=== PATIENT | male | born 1955 | race Caucasian/White ===

== ENCOUNTER → 2016-08-08 | Outpatient (CLI) | payer BC ==
[~2016-08-08] MED LIST: ATOR-54 PO; GLUCTAB7 PO; HYDR-5688 PO; LSN40 PO; MULT-506 PO; OXYC1TAB3 PO; RIVA1TAB4 PO; TPRSR/100 PO; [UNRECOGNIZED DRUG - CODE] PO; [UNRECOGNIZED DRUG - CODE] PO; [UNRECOGNIZED DRUG - CODE] PO
== END | disposition home or self-care (01) ==
LOC: C.LABBFT 13:22
PROVIDERS: ATTEND Internal Medicine
DX: Z12.5 Encounter for screening for malignant neoplasm of prostate (principal)

== ENCOUNTER → 2016-08-08 | Outpatient (CLI) | payer BC ==
--- NOTE | 2016-08-08 15:51 | DIAGNOSTIC IMAGING REPORT ---
LEFT KNEE 2 VIEWS CLINICAL HISTORY: Left knee pain. FINDINGS: AP and crosstable lateral views of the left knee are obtained. No prior studies are available for comparison at the time of dictation. The skeletal structures are well mineralized. No fracture is seen. There is mild tricompartmental degenerative joint space narrowing, greatest in the medial and patellofemoral compartments. There are small patellar enthesophytes and medial marginal osteophytes. A joint effusion is suspected. There is mild prepatellar soft tissue swelling. IMPRESSION: 1. Mild prepatellar soft tissue swelling and joint effusion. No fracture is seen. 2. Mild arthritic change as above. Electronically signed by: Eugenio Green M.D. 08/08/2016 3:50 PM Dictated Date/Time: 08/08/2016 3:48 PM
== END | disposition home or self-care (01) ==
LOC: C.RAD1850 15:35
PROVIDERS: ATTEND Internal Medicine
DX: M25.562 Pain in left knee (principal)

== ENCOUNTER 2016-09-15 10:38 | Emergency (ER) | payer OTHER, BC ==
[~2016-09-15] VITALS: Ht 177.8 cm; Wt 122.4 kg
[~2016-09-15 10:38] MED LIST changes: -OXYC1TAB3 PO
[2016-09-15 10:58] VITALS: TEMP 36.9; Ht 177.8 cm; Wt 122.4 kg
--- NOTE | 2016-09-15 11:55 | DIAGNOSTIC IMAGING REPORT ---
RIGHT ANKLE MIN 3 VIEWS ROUTINE CLINICAL HISTORY: D6 Right pain. Edema. COMPARISON: None. DISCUSSION: The bones and joint spaces appear intact. There is no evidence of fracture, dislocation or bony disease. Mild soft tissue edema. Heel spur. IMPRESSION: Mild soft tissue edema. Heel spur. Electronically signed by: Guillermo Christopher M.D. 09/15/2016 11:54 AM Dictated Date/Time: 09/15/2016 11:52 AM
[2016-09-15] MEDS ORDERED: OXYCODONE HCL IR 5 MG TAB (IMMEDIATE RELEASE) PO STA (12:00)
[2016-09-15] MEDS ORDERED: ONDANSETRON 4MG OD TAB PO STA (12:00)
--- NOTE | 2016-09-15 12:04 | DIAGNOSTIC IMAGING REPORT ---
RIGHT FOOT MIN 3 VIEWS ROUTINE CLINICAL HISTORY: Right foot pain s/p inversion injury Right trauma. Pain. COMPARISON: None. DISCUSSION: The bones and joint spaces appear intact. There is no evidence of fracture, dislocation or bony disease. There is no evidence for soft tissue swelling. IMPRESSION: Heel spur. No acute bony abnormality. Electronically signed by: Guillermo Christopher M.D. 09/15/2016 12:03 PM Dictated Date/Time: 09/15/2016 12:02 PM
[2016-09-15 12:43] LABS: HEMATOCRIT 42.7 % (42-52); MEAN CELL VOLUME 86.8 fL (80-100); MEAN CORPUSCULAR HEMOGLOBIN 31.5 pg (25-34); MEAN CORPUSCULAR HGB CONC 36.3 g/dl (32-36); MEAN PLATELET VOLUME 10.8 fL (7.4-10.4); PLATELET COUNT 221 K/uL (130-400); RED BLOOD COUNT 4.92 M/uL (4.7-6.1); WHITE BLOOD COUNT 9.18 K/uL (4.8-10.8)
[2016-09-15 12:59] LABS: BUN/CREATININE RATIO 15.6 (10-20); CALCIUM 8.6 mg/dl (8.5-10.1); CREATININE 0.87 mg/dl (0.60-1.40)
[2016-09-15] MEDS ORDERED: OXYCODONE IR HOME PACK PO STA (13:27)
[2016-09-15] MEDS ORDERED: OXYC1TAB3 PO (13:29)
--- NOTE | 2016-09-15 13:31 | EMERGENCY ROOM VISIT NOTE ---
History First contact with patient: 11:22 Chief Complaint: ANKLE PAIN Stated Complaint: RIGHT ANKLE PAIN-POSSIBLY A WORK RELATED INJURY History of Present Illness The patient is a 61 year old male who presents to the Emergency Room via private vehicle with complaints of "right ankle pain-possibly work related injury". 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 He notes that he did have pain at the time, but is now increasing and he points to the right lateral malleolus as a location of the pain that he rates as an 8/10. He has taken 1 indomethacin tablet with minimal relief. The patient states this does not feel like gout. He denies any chest pain, shortness of breath, fevers, chills, abdominal pain, radiating pain, or numbness or tingling into the distal extremity. He denies any headache or dizziness. He is employed with [employer]. Review of Systems A complete 10-point Review of Systems was discussed with the patient, with pertinent positives and negatives listed in the History of Present Illness. All remaining Review of Systems questions can be considered negative unless otherwise specified. Past Medical/Surgical History Medical Problems: (1) Afib (2) Mitral valve regurgitation Family History A blood pressure, cancer, kidney disease or stones. Social History Smoking Status: Never Smoker Drug Use: none Marital Status: Housing Status: lives alone Occupation Status: employed Social History: Patient lives with daughter. Current/Historical Medications Scheduled Ascorbic Acid (Vitamin C Drops 60 mg), 120 MG PO DAILY Atorvastatin (Lipitor), 20 MG PO HS Vrqxjycvjgj-Xftcgisysty-Yvh C- (Glucosamine Chondroitin), 1 TAB PO DAILY Lisinopril (Lisinopril), 40 MG PO DAILY Metoprolol Succinate (Metoprolol Succinate ER), 100 MG PO DAILY Multivitamin (Multivitamin), 1 TAB PO QAM Raspberry Ketones (Raspberry Ketones), 100 MG PO DAILY Rivaroxaban (Xarelto), 20 MG PO QAM Scheduled PRN Acetaminophen (Extra Strength Pain Relie), 1,000 MG PO Q6 PRN for Pain Oxycodone Ir (Roxicodone Ir), 1-2 TAB PO Q4H PRN for Pain Allergies Coded Allergies: No Known Allergies (Verified , NONE, 04/07/16) Physical Exam Vital Signs Date Time Temp Pulse Resp B/P Pulse Ox O2 Delivery O2 Flow Rate FiO2 09/15/16 14:13 56 18 145/91 91 09/15/16 13:13 88 20 176/101 95 09/15/16 12:00 186/101 09/15/16 10:58 36.9 89 16 198/110 96 Room Air Physical Exam VITAL SIGNS - Vital signs and nursing notes were reviewed. GENERAL -61-year-old male appearing his stated age who is in no acute distress. Communicates well with provider and answers questions appropriately. SKIN - Without rashes. HEAD - NC/AT. LUNGS - Chest wall symmetric without accessory muscle use, intercostals retractions, or central cyanosis. Normal vesicular breath sounds CTA B/L. No wheezes, rales, or rhonchi appreciated. CARDIAC - RRR with S1/S2. No murmur, rubs, or gallops appreciated. EXTREMITIES - No clubbing or peripheral cyanosis. No pretibial edema present. +3 /5 radial, posterior tibial, and dorsalis pedis pulses palpated throughout. Patient is vascularly intact in the right lower extremity.+5/5 strength noted in UE/LE bilaterally. There is tenderness to palpation overlying the right lateral malleolus. NEUROLOGIC - Cranial nerves II through XII grossly intact. PSYCH - Pt is very pleasant and interacts well with examiner. Medical Decision & Procedures ER Provider Diagnostic Interpretation: RIGHT ANKLE MIN 3 VIEWS ROUTINE CLINICAL HISTORY: D6 Right pain. Edema. COMPARISON: None. DISCUSSION: The bones and joint spaces appear intact. There is no evidence of fracture, dislocation or bony disease. Mild soft tissue edema. Heel spur. IMPRESSION: Mild soft tissue edema. Heel spur. Electronically signed by: Guillermo Christopher M.D. 09/15/2016 11:54 AM Dictated Date/Time: 09/15/2016 11:52 AM RIGHT FOOT MIN 3 VIEWS ROUTINE CLINICAL HISTORY: Right foot pain s/p inversion injury Right trauma. Pain. COMPARISON: None. DISCUSSION: The bones and joint spaces appear intact. There is no evidence of fracture, dislocation or bony disease. There is no evidence for soft tissue swelling. IMPRESSION: Heel spur. No acute bony abnormality. Electronically signed by: Guillermo Christopher M.D. 09/15/2016 12:03 PM Dictated Date/Time: 09/15/2016 12:02 PM Laboratory Results 09/15/16 12:30 09/15/16 12:30 Test 09/15/16 12:30 Red Blood Count 4.92 M/uL (4.7-6.1) Mean Corpuscular Volume 86.8 fL (80-100) Mean Corpuscular Hemoglobin 31.5 pg (25-34) Mean Corpuscular Hemoglobin Concent 36.3 g/dl (32-36) RDW Standard Deviation 41.9 fL (36.4-46.3) RDW Coefficient of Variation 13.2 % (11.5-14.5) Mean Platelet Volume 10.8 fL (7.4-10.4) Anion Gap 8.0 mmol/L (3-11) Est Creatinine Clear Calc Drug Dose 114.0 ml/min Estimated GFR () 106.5 Estimated GFR (Non- 91.9 BUN/Creatinine Ratio 15.6 (10-20) Calcium Level 8.6 mg/dl (8.5-10.1) Medications Administered Medications (Trade) Dose Ordered Sig/Jorge Route Start Time Stop Time Status Last Admin Dose Admin Oxycodone HCl (Roxicodone Immediate Rel Tab) 10 mg NOW STAT PO 09/15/16 12:00 09/15/16 12:01 DC 09/15/16 12:17 10 MG Ondansetron HCl (Zofran Odt) 4 mg NOW STAT PO 09/15/16 12:00 09/15/16 12:01 DC 09/15/16 12:18 4 MG Oxycodone HCl (Roxicodone Immediate Rel 5MG Home Pack) 1 homepack UD STAT PO 09/15/16 13:27 09/15/16 13:28 DC 09/15/16 13:48 1 HOMEPACK Medical Decision Patient was seen and evaluated as above. After obtaining a thorough history and physical examination radiographs were obtained of the right ankle secondary to subjective and objective examination findings. It is important that the patient was also found to be hypertensive at 198/110. He did not appear to be symptomatic with this. He was given ice for the ankle, and OxyIR for his pain. Repeat vital signs were initiated and blood pressure decreased minimally. I discussed the case with my attending, or for was decided to draw basic labs to assess kidney function, and an EKG. Labs revealed no leukocytosis or anemia. PRP was unremarkable. EKG revealed sinus bradycardia, rate of 59 bpm, without ectopy or ischemic change. When compared with EKG of 12/23/2014, no significant change was found, and PVCs were no longer present. The patient was educated upon these findings. Radiograph results as above, I agree with radiologist findings, no acute fracture dislocation. He was fitted with a gel ankle splint, provided and OxyIR home pack, was sent a prescription to his pharmacy for pickup, and was instructed to follow-up with his Workmen's Compensation individual as well as orthopedic individual. He was provided the number for a group to follow-up with. He is to call as soon as possible. He was educated on findings of today's visit, educated upon worrisome symptoms which to return, had questions answered prior to discharge, and was discharged home in good condition. He is to follow-up with his family doctor in the next few days for recheck of his blood pressure, or return here if worsening. In the evaluation and treatment of this patient, the following differential diagnoses were considered: Ankle Fracture, Ankle Sprain, Distal Fibula Fracture , Distal Tibia Fracture, Foot Fracture, [place] Fracture. [place] Drug Monitoring Program Search Results: patient reviewed within database, no issues identified Impression Primary Impression: Right ankle pain Departure Information Dispostion Home / Self-Care Condition GOOD Prescriptions Oxycodone Ir (Roxicodone Ir) 5 Mg Tab 1-2 TAB PO Q4H Y for Pain, #15 TAB For Initial Treatment Prov: Arron Verde PA-C 09/15/16 Referrals Justin Winters M.D. (PCP) David Concepcion D.O. Patient Instructions My [facility] Additional Instructions You have been treated in the Emergency Department for a right Ankle injury. You have received pain medicine in the emergency department which impairs your ability to operate a vehicle. It is illegal for you to drive after receiving these medicines. You have been prescribed Oxy IR to be used for pain control. This is a narcotic medication. You cannot drive or consume alcohol while on this medicine. This medicine should only be used for pain that cannot be controlled with over-the- counter pain medicines. For pain control, you can use the following [id number] medicines (if >12 yo): - Regular strength (325mg/tab) Tylenol (acetaminophen) 2 tabs every 4-6 hours as needed. Do not exceed 12 tablets in a 24 hour period. Avoid taking more than 4 grams (4000 mg) of Tylenol per day. This includes any other sources of acetaminophen you may take on a regular basis. - Regular strength (200 mg/tab) Advil (ibuprofen) 1-2 tabs every 4-6 hours as needed. Do not exceed a dose of 3200 mg per day. If this is a recent injury (<24 hrs), ice can be applied to the area of pain for the first 3 days to help decrease pain and inflammation. You have been provided the number for an Orthopaedic Surgeon. You should call this number as soon as possible to establish a follow-up visit from today's Emergency Department visit. (Dr. Concepcion) Keep the ankle brace/splint in place until cleared by Orthopedics. Use the crutches you have to keep ALL weight off of the ankle until weight bearing is tolerable. Please call your employer to find out who the approved Workmen's Compensation individual is to clear you for work. As we discussed her blood pressure was elevated here today. Lab work and EKG did not reveal any emergent findings. Please follow-up with your family doctor as soon as possible for check of your blood pressure. Return to the Emergency Department if your current symptoms worsen despite treatment course outlined above, or if you develop any of the following symptoms : intractable pain despite aforementioned treatment course or new onset of numbness or tingling of the foot. Problem Qualifiers Primary Impression: Right ankle pain Chronicity: acute Qualified Codes: M25.571 - Pain in right ankle and joints of right foot
[2016-09-15 14:13] VITALS: BP 145/91; PULSE 56; O2SAT 91
== END 2016-09-15 14:15 | disposition home or self-care (01) ==
LOC: C.EDB 10:41 → C.EDD 14:15
DX: M25.571 Pain in right ankle and joints of right foot (principal); I48.91 Unspecified atrial fibrillation; Z79.01 Long term (current) use of anticoagulants; Z79.899 Other long term (current) drug therapy

== ENCOUNTER → 2016-10-17 | Outpatient (CLI) | payer BC ==
[~2016-10-17] MED LIST changes: -HYDR-5688 PO; +OXYC1TAB3 PO
--- NOTE | 2016-10-17 08:21 | DIAGNOSTIC IMAGING REPORT ---
Renal arterial Doppler DUPLEX RENAL ARTERY CLINICAL HISTORY: Hypertension urinary retention TECHNIQUE: Arterial Doppler COMPARISON STUDY: None FINDINGS: Arterial velocities are unremarkable bilaterally. There is no significant velocity increase. There is no significant abnormality of impedance characteristics. IMPRESSION: Normal arterial Doppler Electronically signed by: Guillermo Christopher M.D. 10/17/2016 8:19 AM Dictated Date/Time: 10/17/2016 8:18 AM
--- NOTE | 2016-10-17 08:21 | DIAGNOSTIC IMAGING REPORT ---
RENAL ULTRASOUND HISTORY: I10 Hypertension COMPARISON: None. FINDINGS: Right kidney: 11.4 cm. No hydronephrosis. Normal corticomedullary differentiation and cortical thickness. Left kidney: 11.6 cm. No hydronephrosis. Normal corticomedullary differentiation and cortical thickness. Bladder: No bladder wall thickening. The bilateral ureteral jets were identified. Prevoid volume of 470 cc. Postvoid residual 34 cc. Miscellaneous: Hepatic steatosis. IMPRESSION: 1. Normal kidneys. 2. Trace postvoid residual of 34 cc. Electronically signed by: Pepito Guerrero M.D. 10/17/2016 8:18 AM Dictated Date/Time: 10/17/2016 8:17 AM
== END | disposition home or self-care (01) ==
LOC: C.ULTR 10-10 07:04
PROVIDERS: ATTEND Nurse Practitioner
DX: I10 Essential (primary) hypertension (principal); K76.0 Fatty (change of) liver, not elsewhere classified

== ENCOUNTER → 2017-01-01 | Outpatient (CLI) | payer BC | END | disposition home or self-care (01) | LOC: C.CPL 09:13 | PROVIDERS: ATTEND Orthopaedic Surgery Sports Medicine | DX: M94.262 Chondromalacia, left knee (principal); I49.3 Ventricular premature depolarization ==

== ENCOUNTER → 2017-04-03 | Outpatient (CLI) | payer BC ==
[~2017-04-03] MED LIST changes: -OXYC1TAB3 PO
[2017-04-03 12:31] LABS: HEMATOCRIT 38.5 % (42-52); MEAN CORPUSCULAR HEMOGLOBIN 30.3 pg (25-34); MEAN CORPUSCULAR HGB CONC 33.2 g/dl (32-36); MEAN PLATELET VOLUME 11.1 fL (7.4-10.4); PLATELET COUNT 295 K/uL (130-400); RED BLOOD COUNT 4.23 M/uL (4.7-6.1); WHITE BLOOD COUNT 9.19 K/uL (4.8-10.8)
[2017-04-03 12:57] LABS: ALT/SGPT 36 U/L (12-78); AST/SGOT 23 U/L (15-37); BLOOD UREA NITROGEN 28 mg/dl (7-18); BUN/CREATININE RATIO 21.2 (10-20); CALCIUM 9.1 mg/dl (8.5-10.1); CARBON DIOXIDE 28 mmol/L (21-32); CHLORIDE 106 mmol/L (98-107); GLUCOSE 108 mg/dl (70-99); POTASSIUM 4.4 mmol/L (3.5-5.1); SODIUM 139 mmol/L (136-145)
== END | disposition home or self-care (01) ==
LOC: C.LABBFT 10:24
PROVIDERS: ATTEND Internal Medicine Cardiovascular Disease
DX: I10 Essential (primary) hypertension (principal); E78.5 Hyperlipidemia, unspecified; I34.0 Nonrheumatic mitral (valve) insufficiency; I48.0 Paroxysmal atrial fibrillation

== ENCOUNTER → 2017-10-06 | Outpatient (CLI) | payer OTHER ==
[2017-10-06 16:34] LABS: HEMATOCRIT 44.5 % (42-52); HEMOGLOBIN 15.1 g/dL (14.0-18.0); MEAN CELL VOLUME 93.1 fL (80-100); MEAN CORPUSCULAR HEMOGLOBIN 31.6 pg (25-34); MEAN CORPUSCULAR HGB CONC 33.9 g/dl (32-36); MEAN PLATELET VOLUME 11.7 fL (7.4-10.4); PLATELET COUNT 277 K/uL (130-400); RED CELL DISTRIBUTION WIDTH CV 13.5 % (11.5-14.5); WHITE BLOOD COUNT 9.74 K/uL (4.8-10.8)
[2017-10-06 16:54] LABS: ALBUMIN 3.9 gm/dl (3.4-5.0); ALT/SGPT 54 U/L (12-78); AST/SGOT 30 U/L (15-37); BLOOD UREA NITROGEN 28 mg/dl (7-18); CARBON DIOXIDE 27 mmol/L (21-32); CREATININE 1.53 mg/dl (0.60-1.40); GLUCOSE 111 mg/dl (70-99); POTASSIUM 4.2 mmol/L (3.5-5.1); SODIUM 138 mmol/L (136-145)
[2017-10-06 16:59] LABS: ALKALINE PHOSPHATASE 96 U/L (45-117); CHOLESTEROL 100 mg/dl (0-200); LDL CHOLESTEROL CALCULATED 45 mg/dl; TOTAL PROTEIN 7.7 gm/dl (6.4-8.2)
== END | disposition home or self-care (01) ==
LOC: C.LABBFT 11:22
PROVIDERS: ATTEND Nurse Practitioner
DX: E87.5 Hyperkalemia (principal); Z12.5 Encounter for screening for malignant neoplasm of prostate; I10 Essential (primary) hypertension; I34.0 Nonrheumatic mitral (valve) insufficiency; I48.0 Paroxysmal atrial fibrillation

== ENCOUNTER → 2017-10-16 | Outpatient (CLI) | payer OTHER ==
[2017-10-16 16:44] LABS: BLOOD UREA NITROGEN 17 mg/dl (7-18); CALCIUM 9.5 mg/dl (8.5-10.1); CARBON DIOXIDE 30 mmol/L (21-32); CREATININE 1.17 mg/dl (0.60-1.40); GLUCOSE 105 mg/dl (70-99); POTASSIUM 4.5 mmol/L (3.5-5.1); SODIUM 138 mmol/L (136-145)
== END | disposition home or self-care (01) ==
LOC: C.LABBFT 11:15
PROVIDERS: ATTEND Nurse Practitioner
DX: I10 Essential (primary) hypertension (principal)

== ENCOUNTER → 2017-10-29 | Outpatient (CLI) | payer OTHER ==
[2017-10-29 12:32] LABS: BLOOD UREA NITROGEN 24 mg/dl (7-18); CALCIUM 9.3 mg/dl (8.5-10.1); CARBON DIOXIDE 27 mmol/L (21-32); CREATININE 1.52 mg/dl (0.60-1.40); GLUCOSE 117 mg/dl (70-99); POTASSIUM 4.6 mmol/L (3.5-5.1); SODIUM 137 mmol/L (136-145); URIC ACID 10.3 mg/dl (2.6-7.2)
== END | disposition home or self-care (01) ==
LOC: C.LABBFT 10:32
PROVIDERS: ATTEND Physician Assistant Medical
DX: M10.9 Gout, unspecified (principal)

== ENCOUNTER → 2017-11-07 | Outpatient (CLI) | payer OTHER ==
[~2017-11-07] MED LIST changes: +ASCO-63 PO; +ASCO250C3; +CHOL100027 PO; +DICL1GEL34 TL; +NRV/10 PO; +PRED10TA PO; +TURM1CAP2 PO; +ULT50 PO; +[UNRECOGNIZED DRUG - REMARK] PO
[2017-11-07 16:52] LABS: BLOOD UREA NITROGEN 16 mg/dl (7-18); CALCIUM 9.2 mg/dl (8.5-10.1); CARBON DIOXIDE 28 mmol/L (21-32); CREATININE 1.22 mg/dl (0.60-1.40); GLUCOSE 87 mg/dl (70-99); POTASSIUM 3.9 mmol/L (3.5-5.1); SODIUM 139 mmol/L (136-145)
== END | disposition home or self-care (01) ==
LOC: C.LABBFT 11:39
PROVIDERS: ATTEND Internal Medicine
DX: I10 Essential (primary) hypertension (principal)

== ENCOUNTER 2017-11-08 19:06 | Emergency (ER) | payer OTHER ==
[~2017-11-08] VITALS: Ht 175.3 cm; Wt 125.5 kg
[~2017-11-08 19:06] MED LIST changes: -ASCO-63 PO; -ASCO250C3; -CHOL100027 PO; -DICL1GEL34 TL; -NRV/10 PO; -PRED10TA PO; -TURM1CAP2 PO; -ULT50 PO; -[UNRECOGNIZED DRUG - REMARK] PO
[2017-11-08 19:17] VITALS: TEMP 37; Ht 175.3 cm; Wt 125.5 kg
[2017-11-08] MEDS ORDERED: OXYCODONE/ACETAMINOPHEN 5-325 TAB PO STA (19:35)
[2017-11-08] MEDS ORDERED: TURM1CAP2 PO (19:40)
[2017-11-08] MEDS ORDERED: CHOL100027 PO (19:40)
[2017-11-08] MEDS ORDERED: DICL1GEL34 TL (19:40)
[2017-11-08] MEDS ORDERED: [UNRECOGNIZED DRUG - REMARK] PO (19:40)
[2017-11-08] MEDS ORDERED: ASCO-63 PO (19:40)
[2017-11-08] MEDS ORDERED: NRV/10 PO (19:40)
[2017-11-08] MEDS ORDERED: ULT50 PO (19:40)
[2017-11-08] MEDS ORDERED: ASCO250C3 (19:40)
--- NOTE | 2017-11-08 20:16 | DIAGNOSTIC IMAGING REPORT ---
R ANKLE MIN 3 VIEWS ROUTINE CLINICAL HISTORY: right ankle pain pain COMPARISON: None. DISCUSSION: Small heel spur. Minimal soft tissue edema. No acute bony abnormality. Small heel spur. Minimal soft tissue edema. IMPRESSION: Negative study. The above report was generated using voice recognition software. It may contain grammatical, syntax or spelling errors. Electronically signed by: Guillermo Christopher M.D. 11/08/2017 8:15 PM Dictated Date/Time: 11/08/2017 8:14 PM
[2017-11-08 20:17] LABS: BASO % 0.1 %; BASO ABS # 0.01 K/uL (0-0.2); EOS % 0.6 %; EOS ABS # 0.08 K/uL (0-0.5); HEMATOCRIT 39.9 % (42-52); HEMOGLOBIN 13.7 g/dL (14.0-18.0); IG# 0.05 K/uL (0.00-0.02); LYMPH % 10.3 %; LYMPH ABS # 1.35 K/uL (1.2-3.4); MEAN CELL VOLUME 90.1 fL (80-100); MEAN CORPUSCULAR HEMOGLOBIN 30.9 pg (25-34); MEAN CORPUSCULAR HGB CONC 34.3 g/dl (32-36); MONO % 7.6 %; NEUT ABS # 10.68 K/uL (1.4-6.5); PLATELET COUNT 249 K/uL (130-400); RED CELL DISTRIBUTION WIDTH CV 13.3 % (11.5-14.5); RED CELL DISTRIBUTION WIDTH SD 43.9 fL (36.4-46.3); WHITE BLOOD COUNT 13.17 K/uL (4.8-10.8)
[2017-11-08 20:28] LABS: CALCIUM 8.5 mg/dl (8.5-10.1); CREATININE 1.3 mg/dl (0.60-1.40); POTASSIUM 3.9 mmol/L (3.5-5.1); URIC ACID 7.9 mg/dl (2.6-7.2)
[2017-11-08] MEDS ORDERED: PRED10TA PO (20:50)
[2017-11-08 21:09] VITALS: BP 129/73; PULSE 71; O2SAT 92
--- NOTE | 2017-11-08 21:52 | EMERGENCY ROOM VISIT NOTE ---
History First contact with patient: 19:22 Chief Complaint: FOOT PAIN Stated Complaint: EXTREME PAIN IN RT FOOT History of Present Illness The patient is a 62 year old male who presents to the Emergency Room with complaints of pain and swelling in his right ankle. The patient does not recall injury or trauma to explain his symptoms. He reports the ankle feels warm, but he has not had fever or chills. The patient does have a history of gout in the past and was recently treated for this with prednisone. Patient is not having pain in the calf or in the knee. He does take Xarelto for a "leaky heart valve". The patient has been able to ambulate, although this does worsen his symptoms. He did take tramadol at home about 1 hour ago with only minimal improvement of symptoms. He rates his current discomfort a 7/10. Review of Systems More than 10 systems were reviewed and otherwise negative with the exception of history of present illness. Past Medical/Surgical History Medical Problems: (1) Afib (2) Mitral valve regurgitation Family History No pertinent family history Social History Smoking Status: Never Smoker Drug Use: none Marital Status: Housing Status: lives alone Occupation Status: employed Current/Historical Medications Scheduled Amlodipine Besylate (Amlodipine Besylate), 10 MG PO DAILY Ascorbic Acid (Vitamin C), 1,000 MG PO DAILY Atorvastatin (Lipitor), 20 MG PO HS Cholecalciferol (Vitamin D 1000 Unit), 1,000 INTER.UNIT PO DAILY Lisinopril (Lisinopril), 40 MG PO DAILY Metoprolol Succinate (Metoprolol Succinate ER), 100 MG PO DAILY Multivitamin (Multivitamin), 1 TAB PO QAM Prednisone Tab (Prednisone), 10 MG PO DIRECTED Rivaroxaban (Xarelto), 20 MG PO QAM Tramadol HCl (Tramadol HCl), 1-2 TAB PO Q4-6HRS Turmeric (Curcuma Longa) (Turmeric), 1 TAB PO DAILY [Anti-Acid Pill], 1 TAB PO DAILY Scheduled PRN Diclofenac Sodium (Topical) (Diclofenac Sodium), 1 APPLN TL QID PRN for AFFECTED AREA Physical Exam Vital Signs Date Time Temp Pulse Resp B/P (MAP) Pulse Ox O2 Delivery O2 Flow Rate FiO2 11/08/17 21:09 71 18 129/73 92 11/08/17 21:02 71 18 129/73 92 Room Air 11/08/17 19:17 37.0 79 18 124/83 92 Room Air Physical Exam VITALS: Vitals are noted on the nurse's note and reviewed by myself. Vital signs stable. GENERAL: Well-developed, well-nourished, white male, who is in no acute distress and resting comfortably. Patient is cooperative with the examination. HEAD: Normocephalic atraumatic. HEART: Regular rate and rhythm without murmurs gallops or rubs. LUNGS: Clear to auscultation bilaterally without wheezes, rales or rhonchi. No retractions or accessory muscle use. MUSCULOSKELETAL: Mild edema and warmth is appreciated to the right ankle, most appreciated along the medial aspect. There is tenderness in this area but no deformity or distinct evidence of infection. Neurovascular status is intact to the distal foot. No MTP joint tenderness. No tenderness of the posterior calf or knee. NEURO: Patient was alert and oriented to person place and time. CN II through XII grossly intact. Medical Decision & Procedures ER Provider Diagnostic Interpretation: R ANKLE MIN 3 VIEWS ROUTINE CLINICAL HISTORY: right ankle pain pain COMPARISON: None. DISCUSSION: Small heel spur. Minimal soft tissue edema. No acute bony abnormality. Small heel spur. Minimal soft tissue edema. IMPRESSION: Negative study. Laboratory Results 11/08/17 19:50 Red Blood Count 4.43, Mean Corpuscular Volume 90.1, Mean Corpuscular Hemoglobin 30.9, Mean Corpuscular Hemoglobin Concent 34.3, Mean Platelet Volume 11.0, Neutrophils (%) (Auto) 81.0, Lymphocytes (%) (Auto) 10.3, Monocytes (%) (Auto) 7.6, Eosinophils (%) (Auto) 0.6, Basophils (%) (Auto) 0.1, Neutrophils # (Auto) 10.68, Lymphocytes # (Auto) 1.35, Monocytes # (Auto) 1.00, Eosinophils # (Auto) 0.08, Basophils # (Auto) 0.01 11/08/17 19:50 Test 11/08/17 19:50 White Blood Count 13.17 K/uL (4.8-10.8) Red Blood Count 4.43 M/uL (4.7-6.1) Hemoglobin 13.7 g/dL (14.0-18.0) Hematocrit 39.9 % (42-52) Mean Corpuscular Volume 90.1 fL (80-100) Mean Corpuscular Hemoglobin 30.9 pg (25-34) Mean Corpuscular Hemoglobin Concent 34.3 g/dl (32-36) Platelet Count 249 K/uL (130-400) Mean Platelet Volume 11.0 fL (7.4-10.4) Neutrophils (%) (Auto) 81.0 % Lymphocytes (%) (Auto) 10.3 % Monocytes (%) (Auto) 7.6 % Eosinophils (%) (Auto) 0.6 % Basophils (%) (Auto) 0.1 % Neutrophils # (Auto) 10.68 K/uL (1.4-6.5) Lymphocytes # (Auto) 1.35 K/uL (1.2-3.4) Monocytes # (Auto) 1.00 K/uL (0.11-0.59) Eosinophils # (Auto) 0.08 K/uL (0-0.5) Basophils # (Auto) 0.01 K/uL (0-0.2) RDW Standard Deviation 43.9 fL (36.4-46.3) RDW Coefficient of Variation 13.3 % (11.5-14.5) Immature Granulocyte % (Auto) 0.4 % Immature Granulocyte # (Auto) 0.05 K/uL (0.00-0.02) Anion Gap 5.0 mmol/L (3-11) Est Creatinine Clear Calc Drug Dose 75.2 ml/min Estimated GFR () 66.8 Estimated GFR (Non- 57.7 BUN/Creatinine Ratio 12.5 (10-20) Uric Acid 7.9 mg/dl (2.6-7.2) Calcium Level 8.5 mg/dl (8.5-10.1) Medications Administered Medications (Trade) Dose Ordered Sig/Jorge Route Start Time Stop Time Status Last Admin Dose Admin Oxycodone/ Acetaminophen (Percocet 5-325mg Tab) 1 tab NOW STAT PO 11/08/17 19:35 11/08/17 19:37 DC 11/08/17 19:45 1 TAB Prednisone (PredniSONE TAB) 50 mg NOW ONCE PO 11/08/17 20:45 11/08/17 20:46 DC 11/08/17 20:52 50 MG Prednisone (PredniSONE TAB) 50 mg NOW ONCE PO 11/08/17 20:45 11/08/17 20:46 DC 11/08/17 20:53 50 MG ED Course Physical exam and history were performed. Nursing notes, EMR, and Medication List were personally reviewed. Patient appears to have right ankle pain for the past few days. There is no report of injury or trauma. The ankle itself does seem warm but not cellulitic. I did elect to draw labs and perform plain films. X-rays were reviewed by myself and radiology showing no fracture or dislocation. The labs do reveal a very slightly elevated white blood cell count as well as an elevated uric acid. Clinically I suspect the patient's symptoms are related to gout, as he has had this in the past. He additionally has had some recent kidney issues that have been followed by his primary care physician. Because of this he will be started on a tapering dose of prednisone. He was given his first dose here in the department. The patient will need to follow with his primary care physician for further care management. He may need referral to nephrology if this continues, and he voiced understanding of this. The patient was discharged home under the care of a female ice cream dipper and rated his discomfort a 2/10 at the time of departure. The chart was completed utilizing [employer] Speech Voice Recognition Software. Grammatical errors, random word insertions, pronoun errors, and incomplete sentences are an occasional consequence of this system due to software limitations, ambient noise, and hardware issues. Any formal questions or concerns about the content, text, or information contained within the body of this dictation should be directly addressed to the provider for clarification. . Medical Decision Differential diagnosis includes, but is not limited to: Sprain, strain, fracture , dislocation, subluxation, contusion, gout, abscess, cellulitis, septic joint, and others Impression Primary Impression: Gout Departure Information Dispostion Home / Self-Care Condition GOOD Prescriptions Prednisone Tab (PREDNISONE) 10 Mg Tab 10 MG PO DIRECTED, #20 TAB Take 40 mg for 2 days, 30 mg for 2 days, 20 mg for 2 days, and 10 mg for 2 days (9-1-8-3-2-2-1-1). Prov: Aguilar Natarajan PA-C 11/08/17 Forms HOME CARE DOCUMENTATION FORM, IMPORTANT VISIT INFORMATION Patient Instructions My [facility] Additional Instructions You were seen and evaluated today on an emergency basis only. This is not a substitute for, or an effort to provide, complete comprehensive medical care. It is not possible to recognize and treat all injuries or illnesses in a single emergency department visit. For this reason it is recommended that you followup with your primary care physician this week for recheck of your condition. Take prednisone for the next 10 days. You will be on a tapering dose of 50 mg for 2 days, 40 mg for 2 days, 30 mg for 2 days, 20 mg for 2 days, then 10 mg for 2 days. You are welcome to return to the emergency department anytime with new, worsening, or concerning symptoms.
== END 2017-11-08 21:10 | disposition home or self-care (01) ==
LOC: C.EDB 19:07 → C.EDD 21:10
DX: M10.9 Gout, unspecified (principal); Z79.01 Long term (current) use of anticoagulants; I48.91 Unspecified atrial fibrillation; I34.0 Nonrheumatic mitral (valve) insufficiency; Z79.899 Other long term (current) drug therapy

== ENCOUNTER → 2017-11-25 | Outpatient (CLI) | payer OTHER ==
[~2017-11-25] MED LIST changes: +ASCO-63 PO; +CHOL100027 PO; +DICL1GEL34 TL; -GLUCTAB7 PO; +NRV/10 PO; +PRED10TA PO; +TURM1CAP2 PO; +ULT50 PO; -[UNRECOGNIZED DRUG - CODE] PO; -[UNRECOGNIZED DRUG - CODE] PO; -[UNRECOGNIZED DRUG - CODE] PO; +[UNRECOGNIZED DRUG - REMARK] PO
[2017-11-25 16:54] LABS: BASO % 0.3 %; BASO ABS # 0.03 K/uL (0-0.2); EOS % 1.8 %; EOS ABS # 0.17 K/uL (0-0.5); HEMATOCRIT 40.9 % (42-52); HEMOGLOBIN 13.9 g/dL (14.0-18.0); IG# 0.03 K/uL (0.00-0.02); LYMPH % 20.3 %; LYMPH ABS # 1.95 K/uL (1.2-3.4); MEAN CELL VOLUME 89.9 fL (80-100); MEAN CORPUSCULAR HEMOGLOBIN 30.5 pg (25-34); MEAN PLATELET VOLUME 10.8 fL (7.4-10.4); MONO ABS # 0.86 K/uL (0.11-0.59); NEUT % 68.3 %; NEUT ABS # 6.56 K/uL (1.4-6.5); PLATELET COUNT 281 K/uL (130-400); RED CELL DISTRIBUTION WIDTH CV 13.3 % (11.5-14.5); RED CELL DISTRIBUTION WIDTH SD 43.9 fL (36.4-46.3)
[2017-11-25 17:50] LABS: ALBUMIN 3.6 gm/dl (3.4-5.0); ALT/SGPT 44 U/L (12-78); AST/SGOT 23 U/L (15-37); BLOOD UREA NITROGEN 17 mg/dl (7-18); CALCIUM 9.1 mg/dl (8.5-10.1); CARBON DIOXIDE 29 mmol/L (21-32); CREATININE 1.14 mg/dl (0.60-1.40); GLUCOSE 103 mg/dl (70-99); SODIUM 138 mmol/L (136-145); URIC ACID 7.2 mg/dl (2.6-7.2)
[2017-11-25 17:53] LABS: ALKALINE PHOSPHATASE 100 U/L (45-117); TOTAL PROTEIN 7.8 gm/dl (6.4-8.2)
== END | disposition home or self-care (01) ==
LOC: C.LABBFT 14:01
PROVIDERS: ATTEND Physician Assistant Medical
DX: M10.9 Gout, unspecified (principal); M79.671 Pain in right foot; M25.50 Pain in unspecified joint